=== PATIENT | female | born 1995 | race Caucasian/White ===

== ENCOUNTER 2016-10-15 20:48 | Emergency (ER) | payer OTHER ==
[~2016-10-15] VITALS: Ht 160 cm; Wt 52.6 kg
[2016-10-15 20:48] VITALS: BP 121/59
--- NOTE | 2016-10-15 20:50 | NUR ---
JANET W/C/O ADHD MED REFILL. STATES SHE IS HOMELESS AND WOULD LIKE TO BE TRANSFERRED TO [facility]. HX:ETOH, WEED, ASTHMA, DEPRESSION, BIPOLAR, ADHD. DENIES ANY SI AT THIS TIME. VSS. ER AWARE.
--- NOTE | 2016-10-15 20:50 | NUR ---
PT JANET DELANEY. TAKEN TO OF
--- NOTE | 2016-10-15 20:54 | NUR ---
Dr. Grover evaluating patient
[2016-10-15 21:08] VITALS: BP 118/68
--- NOTE | 2016-10-15 21:08 | NUR ---
Patient discharged with v/s stable BY LION TALBOT. Written and verbal after care instructions given and explained BY LINO TALBOT. Patient verbalized understanding. Ambulatory with steady gait. All questions addressed prior to discharge BY LINO TALBOT. Advised to follow up with PMD BY LINO TALBOT
--- NOTE | 2016-10-15 21:08 | NUR ---
PT REQUESTED FOR 5150 HERE AT [facility] AFTER ER MD DR TALBOT DISCHARGED. DR TALBOT WAS INFORMED, HE STATES SHE HAS BEEN DISCHARGED, AND GIVEN RESOURCES TO [facility]. PT TO CONTACT [facility] AND NOT BE PLACED HERE AT [facility] UNDER [address] TALBOT
== END 2016-10-15 21:08 | disposition home or self-care (01) ==
LOC: MED 20:48
DX: F32.9 Major depressive disorder, single episode, unspecified (principal); J45.909 Unspecified asthma, uncomplicated; Z88.0 Allergy status to penicillin
CPT/HCPCS: 99283

== ENCOUNTER 2016-10-29 04:05 | Emergency (ER) | payer OTHER ==
[~2016-10-29] VITALS: Ht 162.6 cm; Wt 48.1 kg
--- NOTE | 2016-10-29 04:12 | NUR ---
BIBA BLS TO ER BED 8
[2016-10-29 04:13] VITALS: BP 106/67
--- NOTE | 2016-10-29 04:13 | NUR ---
Patient being evaluated by physician at bedside.
[2016-10-29] MEDS ORDERED: ALBUTEROL SULFATE/IPRATROPIU 3 ML SOL IH ONE (04:20)
--- NOTE | 2016-10-29 04:35 | NUR ---
RT AT BEDSIDE PROVIDING BREATHING TREATMENT. PT REFUSED TO HAVE ABG LAB DRAW DONE. DR. KEBEDE NOTIFIED.
--- NOTE | 2016-10-29 04:35 | NUR ---
BIBA C/P SOB FOR 6 MONTHS. PT HAS HX OF BIPOPLAR, DEPRESSION, ADHD, ETOH ABUSE AND ADMITS TO SMOKING MARIJUANA SKIN IS PINK/WARM/DRY; AAOX4 WITH EVEN AND STEADY GAIT; LUNGS CLEAR BL; HR EVEN AND REGULAR; PT DENIES ANY FEVER, CP, OR COUGH AT THIS TIME; PATIENT STATES PAIN OF 8/10 AT THIS TIME; VSS; PATIENT POSITIONED FOR COMFORT; HOB ELEVATED; BEDRAILS UP X2; BED DOWN. ER MD MADE AWARE OF PT STATUS.
--- NOTE | 2016-10-29 04:44 | NUR ---
PT REFUSED ABG, DR KEBEDE NOTIFIED AND CANCELL
--- NOTE | 2016-10-29 04:50 | NUR ---
XRAY DONE AT BEDSIDE
--- NOTE | 2016-10-29 05:18 | NUR ---
Patient discharged with v/s stable. Written and verbal after care instructions given and explained. Patient alert, oriented and verbalized understanding of instructions. Ambulatory with steady gait. All questions addressed prior to discharge. ID band removed. Patient advised to follow up with PMD. Rx of BACTRIM AND ALBUTEROL given. Patient educated on indication of medication including possible reaction and side effects. Opportunity to ask questions provided and answered.
[2016-10-29 05:19] VITALS: BP 101/67
== END 2016-10-29 05:20 | disposition home or self-care (01) ==
LOC: MED 04:05
DX: J45.901 Unspecified asthma with (acute) exacerbation (principal); K13.79 Other lesions of oral mucosa; F17.210 Nicotine dependence, cigarettes, uncomplicated; F32.9 Major depressive disorder, single episode, unspecified; Z88.0 Allergy status to penicillin
CPT/HCPCS: 71010; 81025; 94640; 99283; J7620; Q0092